=== PATIENT | female | born 1965 | race Caucasian/White ===

== ENCOUNTER 2017-09-22 08:07 | Outpatient (CLI) | payer OTHER | END 2017-09-22 08:08 | disposition home or self-care (01) | LOC: BICMAMMO 08:07 | PROVIDERS: ATTEND Family Medicine | DX: Z12.31 Encounter for screening mammogram for malignant neoplasm of breast (principal) | CPT/HCPCS: 77067 ==

== ENCOUNTER 2018-05-11 15:45 | Outpatient (CLI) | payer OTHER ==
--- NOTE | 2018-05-11 16:47 | MRI ---
MRI CERVICAL SPINE WITHOUT CONTRAST: 05/11/18 HISTORY: Radiculopathy. Neck pain. COMPARISON: None. FINDINGS: The background marrow signal is without marrow infiltrative process. Cerebellar tonsils terminate bel ow the foramen magnum, approximately 4 mm. There is a posterior disc osteophyte complex at C5-6 narrowing the spinal canal approximately 5 mm wi th impingement upon the ventral cord. No abnormal inherent cord T2 signal. There is severe facet arth ropathy bilaterally at C7-T1 with subsequent 2 mm anterolisthesis and moderate bilateral neural silas inal narrowing. Remainder of the neural foramina and spinal canal are patent. IMPRESSION: 1. Large posterior disc osteophyte complex at C5-6 which is central and bilateral paracentral na rrowing the spinal canal approximately to 5 mm with abutment of the cord without abnormal inherent co rd signal. 2. Bilateral C7-T1 severe facet degenerative changes with 2 mm anterolisthesis and moderate bila teral neural foraminal narrowing. 3. Cerebellar ectopia. POS: [facility] [place]
== END 2018-05-11 15:46 | disposition home or self-care (01) ==
LOC: SCSMRI 15:45
PROVIDERS: ATTEND Family Medicine
DX: M47.22 Other spondylosis with radiculopathy, cervical region (principal); M48.02 Spinal stenosis, cervical region; M43.12 Spondylolisthesis, cervical region; M99.81 Other biomechanical lesions of cervical region; Q04.8 Other specified congenital malformations of brain
CPT/HCPCS: 72141

== ENCOUNTER 2018-07-27 08:50 | Outpatient (CLI) | payer OTHER ==
[2018-07-27 10:08] LABS: Hemoglobin 12.9 g/dL (12.0-16.0); Mean Corpuscular HGB CONC 32.4 g/dL (32.0-36.0); Mean Corpuscular Hemoglobin 30.6 pg (27.0-31.0); Mean Corpuscular Volume 94.3 fL (78.0-98.0); Mean Platelet Volume 8.8 fL (7.4-10.4); Platelet Count 232 thou/uL (130-400); RBC Distribution Width 11.8 % (11.5-14.5); Red Blood Cell (RBC) Count 4.21 mill/uL (4.20-5.40); White Blood Cell (WBC) Count 5.4 thou/uL (4.8-10.8)
[2018-07-27 10:17] LABS: PTT 24.9 SEC (22.9-36.1); Prothrombin Time 13.7 SEC (12.0-14.7)
[2018-07-27 10:31] LABS: Anion Gap 10 mmol/L (10-20); BUN (Urea Nitrogen) 10 mg/dL (9.8-20.1); Calc. Creatinine Clearance 0 mL/min (70-130); Calcium 9.4 mg/dL (7.8-10.44); Carbon Dioxide 26 mmol/L (22-29); Chloride 106 mmol/L (98-107); Estimated GFR-MDRD 76; Glucose 105 mg/dL (70-105); Sodium 138 mmol/L (136-145)
--- NOTE | 2018-07-27 15:02 | EKG ---
Test Reason : Blood Pressure : / mmHG Vent. Rate : 074 BPM Atrial Rate : 074 BPM P-R Int : 144 ms QRS Dur : 086 ms QT Int : 396 ms P-R-T Axes : 053 052 047 degrees QTc Int : 439 ms Normal sinus rhythm Normal ECG No previous ECGs available Confirmed by DR. Davide FINNEGAN ([id number]) on 07/27/2018 3:01:44 PM Referred By: RASHAAD Confirmed By:DR. Davide FINNEGAN
== END 2018-07-27 08:51 | disposition home or self-care (01) ==
LOC: LABBT 08:50
PROVIDERS: ATTEND Surgery
DX: Z01.818 Encounter for other preprocedural examination (principal); M47.12 Other spondylosis with myelopathy, cervical region; M47.22 Other spondylosis with radiculopathy, cervical region
CPT/HCPCS: 80048; 85027; 85610; 85730; 93005; 93010

== ENCOUNTER 2018-08-03 10:34 | Day surgery (SDC) | payer OTHER ==
[2018-07-27 09:10] VITALS: BMI 26.9
[2018-08-03] MEDS ORDERED: Thrombin 5000 UNITS/5 ML VIAL ONE (10:48)
[2018-08-03] MEDS ORDERED: Sodium Chloride 0.9% 10 ML ONE (10:48)
[2018-08-03] MEDS ORDERED: CEFAZOLIN 2 GM/50 ML BAG ONE (11:12)
[2018-08-03] MEDS ORDERED: Fentanyl 100 MCG/2 ML VIAL ONE ×4 (11:18→15:05)
[2018-08-03] MEDS ORDERED: Midazolam HCl 2 mg/2 ml Vial ONE (11:18)
[2018-08-03] MEDS ORDERED: Mag-Al 1200 mg/1200 mg/30 ML UDCUP PO PRN (13:49)
[2018-08-03] MEDS ORDERED: Bisacodyl 10 MG SUPP PR PRN (13:49)
[2018-08-03] MEDS ORDERED: Fleet Enema 133 ML BOT PR PRN (13:49)
[2018-08-03] MEDS ORDERED: Acetaminophen 325 MG TAB PO PRN (13:49)
[2018-08-03] MEDS ORDERED: Milk Of Magnesia 30 ML UDCUP PO PRN (13:49)
[2018-08-03] MEDS ORDERED: Promethazine HCl 25 MG/ML VIAL IM PRN (13:50)
[2018-08-03] MEDS ORDERED: HYDROmorphone 2 MG/ML VIAL SLOW IVP PRN (13:50)
[2018-08-03] MEDS ORDERED: Promethazine HCl 25 MG/ML VIAL SLOW IVP PRN (13:50)
[2018-08-03] MEDS ORDERED: Ondansetron HCl/PF 4 MG/2 ML Vial IVP PRN (13:50)
[2018-08-03] MEDS ORDERED: Promethazine HCl 25 MG/ML VIAL IVPB PRN (13:53)
[2018-08-03] MEDS ORDERED: HYDROmorphone 2 MG/ML VIAL ONE (13:55)
[2018-08-03] MEDS ORDERED: CEFAZOLIN/Water 2 GM/20 ML SYRINGE SLOW IVP SCH (14:00)
[2018-08-03] MEDS ORDERED: Promethazine HCl 12.5 MG in Sodium Chloride 0.9% 50 ML IVPB PRN (14:49)
[2018-08-03] MEDS ORDERED: PHENYLEPHRINE-NS 100 MCG/ML 10 ML SYRINGE ONE (14:54)
[2018-08-03] MEDS ORDERED: PROPOFOL 200 MG/20 ML VIAL ONE (14:54)
[2018-08-03] MEDS ORDERED: Dexamethasone 20 MG/5 ML VIAL ONE (14:54)
[2018-08-03] MEDS ORDERED: Lidocaine 1% PF 5 ML VIAL ONE (14:54)
[2018-08-03] MEDS ORDERED: Ondansetron PF 4 MG/2 ML Vial ONE (14:54)
[2018-08-03] MEDS: HYDROcodone/Acetaminophen 7.5/325 mg Tablet PO PRN ×2 (15:49→20:37)
[2018-08-03] MEDS: Sodium Chloride 0.9% 1,000 ML IV SCH (15:52)
[2018-08-03] MEDS: Morphine 2 MG/ML SYRINGE SLOW IVP PRN ×3 (16:40→21:41)
--- NOTE | 2018-08-03 17:07 | OP ---
OR: #11. WOUND TYPE: Type 1 wound. SURGEON: John Landeros M.D. RN FIELD: Lonnie Ware PA-C. PREPROCEDURE DIAGNOSES: Neck and arm pain with C5-C6 stenosis with myelopathy and radiculopathy. POSTPROCEDURE DIAGNOSES: Neck and arm pain with C5-C6 stenosis with myelopathy and radiculopathy. PROCEDURE: 1. Anterior C5-C6 diskectomy for decompression of spinal cord and nerve roots. 2. Placement of interbody spacer, C5-C6 for arthrodesis packed with local bone autograft obtained fr om same incision and allograft. 3. Use of operative microscope for microdissection. 4. Anterior cervical plate and screw fixation, C5-C6. PROCEDURE: After informed consent was obtained, the patient was brought to OR. Proper patient pause and identification was carried out. She was placed in excellent general endotracheal anesthesia and positioned supine on the OR table. All appropriate points were padded. We identified the C5-C6 seg ments with a right anterior oblique juan carlos that would allow for approach to the segment. This region w as sterilely cleansed, prepared, and draped. Proper patient pause and identification was carried out . The wound was then opened with a combination of sharp, monopolar and blunt dissection. The anteri or C5-C6 segments were exposed, stella lateral to the tracheoesophageal bundle and medial to the right carotid sheath. Prevertebral fascia was exposed with the longus colli muscles and swept latera lly. Distraction then occurred following localization. Microscope brought into the field for microd issection. C5-C6 diskectomy was performed and decortication exposing local bone autograft revealed d ecorticated endplates and bleeding subchondral bone. We then placed, had excellent decompression of the common dural tube with a diskectomy and bilateral C6 nerve roots. Copious irrigation occurred th roughout and maximized hemostasis as well. We then placed an interbody spacer of appropriate dimensi on C5-C6 segment. The microscope was then removed. Anterior cervical plate and screw fixation, C5-C 6 then occurred and final tightened. Copious irrigation was occurred throughout as did maximizing he mostasis. The wound was then closed in anatomic layers over a drain. The patient was then emerged f rom anesthesia.
[2018-08-03] MEDS: traMADol HCl 50 MG TAB PO PRN (17:44)
[2018-08-03] MEDS: CEFAZOLIN 2 GM/50 ML-DEXTROSE 2 GM in Premix Bag 1 BAG IVPB SCH (19:58)
[2018-08-03] MEDS ORDERED: HYDROcodone/Acetaminophen 7.5/325 mg Tablet PO PRN (23:00)
[2018-08-03] MEDS: Cyclobenzaprine 10 MG TAB PO PRN (23:20)
[2018-08-04] MEDS ORDERED: Ketorolac Tromethamine 30 MG/ML VIAL IVP SCH (00:45)
[2018-08-04] MEDS: traMADol HCl 50 MG TAB PO PRN ×2 (02:48→09:45)
[2018-08-04] MEDS ORDERED: Ondansetron ODT 4 MG TAB PO PRN (02:51)
[2018-08-04] MEDS ORDERED: Ondansetron PF 4 MG/2 ML Vial IVP PRN (02:52)
[2018-08-04] MEDS: CEFAZOLIN 2 GM/50 ML-DEXTROSE 2 GM in Premix Bag 1 BAG IVPB SCH ×2 (03:03→12:04)
[2018-08-04] MEDS ORDERED: Liothyronine Sodium 25 MCG TAB PO SCH (06:00)
[2018-08-04] MEDS ORDERED: Levothyroxine 175 MCG TAB PO SCH (06:00)
[2018-08-04] MEDS: Sodium Chloride 0.9% 1,000 ML IV SCH (07:34)
[2018-08-04] MEDS: Cyclobenzaprine 10 MG TAB PO PRN (08:35)
[2018-08-04] MEDS ORDERED: Hydrochlorothiazide 25 MG TAB PO SCH (09:00)
[2018-08-04] MEDS ORDERED: Citalopram 20 MG TAB PO SCH (09:00)
--- NOTE | 2018-08-04 11:59 | PRG ---
DATE OF SERVICE: 08/04/2018 Ms. Barraza is postoperative day 1 from C5-C6 ACDF. She feels as if she has improved in regards to he r upper extremity pain. She is even swallowing well. We went over intra and postoperative issues. Neurologically, she is doing well. We will remove her drain.
[2018-08-04 12:11] VITALS: BP 114/72; TEMP 98.6
== END 2018-08-04 14:12 | disposition home or self-care (01) ==
LOC: SDC 10:34 → SURG B 15:42 → SDC 08-04 14:12
PROVIDERS: ATTEND Surgery
PROC: 0RT30ZZ Resection of Cervical Vertebral Disc, Open Approach (ICD-10-PCS; principal; 2018-08-03)
PROC: 0RG10A0 Fusion of Cervical Vertebral Joint with Interbody Fusion Device, Anterior Approach, Anterior Column, Open Approach (ICD-10-PCS; principal; 2018-08-03)
DX: M48.02 Spinal stenosis, cervical region (principal); M50.022 Cervical disc disorder at C5-C6 level with myelopathy; M50.122 Cervical disc disorder at C5-C6 level with radiculopathy; Z79.899 Other long term (current) drug therapy; Z91.048 Other nonmedicinal substance allergy status
CPT/HCPCS: 76001; 96374; 96375; C1713; C1776; J1100; J1170; J1885; J2001; J2250; J2270; J2405; J2704; J3010; J3490

== ENCOUNTER 2018-09-22 15:09 | Outpatient (CLI) | payer OTHER ==
--- NOTE | 2018-09-22 16:39 | RAD ---
CERVICAL SPINE FIVE VIEWS: 09/22/18 INDICATION: Followup surgery. COMPARISON: Prior exam dated 05/04/18. FINDINGS: Since the comparison examination, there has been interval placement of ACDF plates spanning C5-6. The re is an intervertebral cage at the C5-6 intervertebral disc level. There is mild prominence of the p revertebral soft tissues that may be postprocedural in nature. Lateral masses are symmetric. Spinal a lignment is within normal limits. Lung apices are clear. There is mild multilevel spondylosis which is similar appearing. IMPRESSION: 1. Interval ACDF of C5-6 with the instrumentation projecting in the expected position. 2. Mild prevertebral soft tissue swelling which may be postprocedure in nature. Recommend follow up. POS: [facility]
== END 2018-09-22 15:10 | disposition home or self-care (01) ==
LOC: TBSIIMAG 15:09
PROVIDERS: ATTEND Surgery
DX: M48.02 Spinal stenosis, cervical region (principal); M50.10 Cervical disc disorder with radiculopathy, unspecified cervical region; M79.89 Other specified soft tissue disorders; Z98.1 Arthrodesis status
CPT/HCPCS: 72040

== ENCOUNTER 2020-02-03 11:32 | Outpatient (CLI) | payer OTHER ==
--- NOTE | 2020-02-03 12:52 | RAD ---
4 VIEWS CERVICAL SPINE: Date: 02/03/2020 COMPARISON: 09/22/2018. HISTORY: Neck pain and radiculopathy in the right shoulder. FINDINGS: 4 views of the cervical spine show the patient to be status post anterior fusion of C5 and C6 with a plate and screws. A disc spacer is seen in the intervening disc space. The C4 and C5 vertebral bodies appear to be more fused than they were on the prior examination. There is an osteophyte projecting o ff the inferior end plate of C4. Mild stable prevertebral soft tissue swelling is seen. Vertebral bod ies demonstrate normal alignment without subluxation. IMPRESSION: Postsurgical changes of the lower cervical spine as above. POS: [facility]
== END 2020-02-03 11:33 | disposition home or self-care (01) ==
LOC: BICRAD 11:32
PROVIDERS: ATTEND Chiropractor
DX: M54.12 Radiculopathy, cervical region (principal); M25.511 Pain in right shoulder; M25.512 Pain in left shoulder; Z98.1 Arthrodesis status
CPT/HCPCS: 72040

== ENCOUNTER 2021-06-14 11:39 | Outpatient (CLI) | payer OTHER | END 2021-06-14 11:40 | disposition home or self-care (01) | LOC: BICRAD 11:39 | PROVIDERS: ATTEND Family Medicine | DX: M54.12 Radiculopathy, cervical region (principal); Z98.1 Arthrodesis status | CPT/HCPCS: 72040 ==

== ENCOUNTER 2022-03-20 08:15 | Outpatient (CLI) | payer OTHER | END 2022-03-20 08:16 | disposition home or self-care (01) | LOC: BICMAMMO 08:15 | PROVIDERS: ATTEND Family Medicine | DX: Z12.31 Encounter for screening mammogram for malignant neoplasm of breast (principal) | CPT/HCPCS: 77063; 77067 ==

== ENCOUNTER 2023-07-08 12:20 | Outpatient (CLI) | payer OTHER | END 2023-07-08 12:21 | disposition home or self-care (01) | LOC: BICRAD 12:20 | PROVIDERS: ATTEND Family Medicine | DX: M54.2 Cervicalgia (principal); M47.812 Spondylosis without myelopathy or radiculopathy, cervical region; Z98.890 Other specified postprocedural states | CPT/HCPCS: 72040 ==